=== PATIENT | female | born 1995 | race Caucasian/White ===

== ENCOUNTER 2024-04-02 12:51 | Emergency (ER) | payer MEDICAID, SELFPAY ==
[2024-04-02 13:03] VITALS: BP 142/91; PULSE 91; RESP 18; TEMP 37.3; O2SAT 97; BMI 47.5
--- NOTE | 2024-04-02 13:18 | XR_ITS ---
Examination: PA lateral chest 2 views TECHNIQUE: Portable PA lateral chest 2 views Exam date and time: April 02, 2024 1329 hours INDICATIONS: Shortness of breath beginning 3 days ago. FINDINGS: No significant cardiac enlargement No pneumonia or pulmonary edema Intact osseous structures IMPRESSION: No active disease
--- NOTE | 2024-04-02 16:12 | PD.EDSOB ---
ED SOB =RME/HPI General Chief Complaint: Shortness of Breath/Dyspnea Stated Complaint: SOB X 3 days Time Seen by Provider: 04/02/24 13:04 Arrival date/time: 04/02/24 12:51 28-year-old female presents emergency department complains of painful cough and congestion ongoing for the last 3 days patient also reports fever Limitations: no limitations Related Data Previous Rx's ?Medication ?Instructions ?Recorded azithromycin 500 mg tablet See Rx Instructions PO .COMPLEX #6 04/02/24 tabs benzonatate 100 mg capsule 100 mg PO TID #14 caps 04/02/24 prednisone 10 mg tablet 30 mg (3 x 10 mg) PO BID 3 days 04/02/24 #18 tabs Allergies Allergy/AdvReac Type Severity Reaction Status Date / Time NKA* Allergy Uncoded 04/10/10 10:32 Review of Systems Review of Systems Systems Reviewed: All systems reviewed, normal except as documented Constitutional Constitutional: Reports system reviewed and no additional complaints, except as documented, Reports fever(s) and Reports headache(s) Eyes Eyes: Reports system reviewed and no additional complaints, except as documented and Denies blurry vision ENT Ears, Nose, Mouth, and Throat: Reports system reviewed and no additional complaints, except as documented, Reports headache(s), Reports nasal congestion and Reports nasal discharge Cardiovascular Cardiovascular: Reports system reviewed and no additional complaints, except as documented, Denies chest pain and Denies dyspnea Respiratory Respiratory: Reports system reviewed and no additional complaints, except as documented, Reports chest congestion, Reports cough and Denies dyspnea Gastrointestinal Gastrointestinal: Reports system reviewed and no additional complaints, except as documented and Denies abdominal pain Integumentary/Breasts Skin/Breast: Reports system reviewed and no additional complaints, except as documented and Denies rash Neurologic Neurologic: Reports system reviewed and no additional complaints, except as documented, Reports as per HPI and Reports headache(s) Past Medical History Social History SMOKING STATUS: Never smoker ED Exam General Limitations: Present no limitations General appearance: Present alert and in no apparent distress Head Head exam: Present atraumatic, normocephalic and normal inspection Eye Eye exam: Present normal appearance, PERRL and EOMI; Absent conjunctival injection ENT ENT exam: Present normal exam, normal oropharynx and mucous membranes moist Neck Neck exam: Present normal inspection, full ROM and trachea midline Chest Chest inspection: Present normal inspection and symmetric chest wall rise Respiratory Respiratory exam: Present normal lung sounds bilaterally; Absent respiratory distress Cardiovascular Cardiovascular exam: Present regular rate, normal rhythm and normal heart sounds Abdominal Exam Abdominal exam: Present soft and normal bowel sounds; Absent distention, tenderness, guarding, rebound or rigidity Extremities Exam Extremities exam: Present normal inspection and full ROM Back Exam Back exam: Present normal inspection and full ROM Neurological Exam Neurological exam: Present alert, oriented X3 and CN II-XII intact Psychiatric Psychiatric exam: Present normal affect and normal mood Skin Skin exam: Present warm, dry, intact and normal color Course Quality Measures none Orders Category Date Time Status Bedside COVID-19 Antigen Test NOW Care 04/02/24 13:18 Active Bedside Influenza A&B Antigen Test NOW Care 04/02/24 13:18 Completed XR chest 2V Stat Exams 04/02/24 13:18 Completed Vital Signs Vital signs: Vital Signs Temperature 99.2 F 04/02/24 13:03 Pulse Rate 91 04/02/24 13:03 Respiratory Rate 18 04/02/24 13:03 Blood Pressure 142/91 H 04/02/24 13:03 Pulse Oximetry (%) 97 04/02/24 13:03 Oxygen Delivery Method Room Air 04/02/24 13:03 O2 saturation 97% room air within normal limits Shortness of Breath / Dyspnea MDM Narrative MDM Narrative:: 28-year-old female presents emergency department complains of painful cough and congestion ongoing for the last 3 days patient also reports fever On exam patient well-appearing patient is not appear ill or toxic in no acute distress Patient checked for flu and COVID both which are negative Chest x-ray obtained no acute pneumonic infiltrates noted Symptoms consistent with bronchitis/URI patient will treat with course of antibiotics steroids and cough medicine Patient discharged home in no distress to follow-up with primary care doctor in the next 24 to 48 hours and for any worsening symptoms to return to the ER immediately Patient data External records reviewed:: [facility] previous records Clinical information provided by:: patient Social determinants that could affect healthcare access:: none Patient has the following chronic illnesses:: None How is presenting disease/condition affected by chronic disease/condition?: no chronic disease Evaluation data The following diagnostics were reviewed and interpreted by me:: lab results and radiology exam(s) Lab and/or radiology exams considered but not ordered:: Labs radiology obtained Interpretation Summary: Reviewed by me Medications / Prescriptions Medications or Prescriptions considered but not ordered:: Given Medication administrations:: Given Consultations Consultation(s) initiated? (list below): No Diagnosis Shortness of Breath Differential Diagnosis: acute exacerbation of chronic obstructive airways disease, community acquired pneumonia and asthma with exacerbation Most likely diagnosis given after review of the tests above:: URI Admission Indicated Admission indicated?: not indicated Admission Request Was there a request for admission?: No Disposition Plan Disposition Plan: Discharge Discharge Attestation Discharge Attestation: The patient and all family members were given an opportunity to ask questions and understood the discharge instructions. Discharge instructions specifically effects, indications for sooner follow up or return to the emergency department, and the expected course of current diagnosis. Patient condition: Stable Discharge Plan Plan Patient Disposition: HOME (Self Care) Disposition Comment: Stable Prescriptions/Referrals Prescriptions/Med Rec: New prednisone 10 mg tablet 30 mg PO BID 3 Days Qty: 18 0RF benzonatate 100 mg capsule 100 mg PO TID Qty: 14 0RF azithromycin 500 mg tablet See Rx Instructions .ROUTE .COMPLEX Qty: 6 0RF Rx Instructions: take 500 mg today (day 1), then 250 mg for 4 days (days 2-5) Referrals: Nova Art MD [Primary Care Provider] - 04/03/24 Problem List Clinical Impression: URI (upper respiratory infection) Patient/Caregiver Discharge Instructions Education Materials: Preventing Common Respiratory ... Additional Instructions: Please follow up with your primary care doctor in the next 24-48hrs for any worsening symptoms return here immediately Print Language: Puerto Rican Stand Alone Forms: Zayda Award Info., Work/School Release, Patient Portal Info Letter ERIC/KRUPA Supervising Physician ERIC/KRUPA Supervising Physician: Dr Bass
== END 2024-04-02 17:31 | disposition home or self-care (01) ==
PROVIDERS: Emergency Provider Emergency Medicine; PCP Internal Medicine
DX: J06.9 Acute upper respiratory infection, unspecified (principal)
CPT/HCPCS: 71046; 87400; 87811; 99283

== ENCOUNTER 2024-10-17 06:24 | Emergency (ER) | payer MEDICAID, SELFPAY ==
[2024-10-17 06:26] VITALS: BP 144/96; PULSE 97; RESP 17; TEMP 37.4; O2SAT 96; BMI 38.2
--- NOTE | 2024-10-17 07:25 | EDNOTE_ITS ---
Upper Respiratory Inf. RME/HPI General Chief Complaint: Flu Like Symptoms Stated Complaint: COUGH AND CHEST PAIN Time Seen by Provider: 10/17/24 07:06 Arrival date/time: 10/17/24 06:24 This is a 29-year-old female that comes in with complaints of cough wheezing body pain, congestion that started yesterday. Patient denies any sick contacts. Patient denies any past medical history. Related Data Previous Rx's ?Medication ?Instructions ?Recorded azithromycin 500 mg tablet See Rx Instructions PO .COM PLEX #6 04/02/24 tabs benzonatate 100 mg capsule 100 mg PO TID #14 caps 09/19 albuterol sulfate 90 mcg/actuation 2 puff inhalation Q ID PRN 10/17/24 aerosol inhaler shortness of breath or wheez ing #8.5 grams ibuprofen 800 mg tablet 800 mg PO Q6H PRN pain #14 t abs 10/17/24 promethazine-DM 6.25 mg-15 mg/5 mL 5 ml PO Q6H PRN cou gh #240 mL 10/17/24 oral syrup Allergies Allergy/AdvReac Type Severity Reaction Status Date / Time NKA* Allergy Uncoded 10/17/24 06:30 Review of Systems Review of Systems Systems Reviewed: All systems reviewed, normal except as documented Past Medical History Social History SMOKING STATUS: Never smoker ED Exam Narrative Physical exam: VITAL SIGNS: Reviewed. GENERAL APPEARANCE: Alert and interactive, follows commands, no acute distress, HEAD AND FACE: Non-traumatic. ENT: PERRL, conjuctiva pink and clear, eyelid no trauma, Mucous membrane moist. NECK: Supple, nontender, no nuchal rigidity. CHEST: No tenderness, no crepitus, no paradoxical movement, no retractions. LUNGS: Clear, well ventilated, symmetric, no rales, mild wheezing posteriorly no rhonchi, no stridor, good breath sounds bilaterally. HEART: Regular rate, regular rhythm, no murmur, no gallops. ABDOMEN: Soft, nondistended, no guarding, nontender, no rebound, no masses, NEUROLOGICAL: Gross motor function intact sensory function intact, Appropriate for age. MUSCULOSKELETAL: low back nontender, full range of motion. EXTREMITIES: No redness no swelling no skin breakdown on bilateral foot and leg. Distal neurovascular status intact bilateral foot SKIN: Color pink, dry, no rash, no lacerations, no abrasions, no contusions. Course Quality Measures none Orders Category Date Time Status Bedside COVID-19 Antigen Test NOW Care 10/17/24 07:23 Completed Bedside Influenza A&B Antigen Test NOW Care 10/17/24 07:23 Completed ALBUTEROL RT 3ml [Proventil Rt 3ml] Med 10/17/24 07:25 Discontinued 2.5 mg INH X1 ONE Acetaminophen Tab [Tylenol ES Tab] Med 10/17/24 07:23 Discontinued 1,000 mg PO X1 ONE Dexamethasone Inj [Decadron Inj] Med 10/17/24 07:23 Discontinued 10 mg PO X1 ONE Ibuprofen Tab [Motrin Tab] Med 10/17/24 07:23 Discontinued 800 mg PO X1 ONE Vital Signs Vital signs: Vital Signs Temperature 99.4 F 10/17/24 06:26 Pulse Rate 97 10/17/24 06:26 Respiratory Rate 17 10/17/24 06:26 Blood Pressure 144/96 H 10/17/24 06:26 Pulse Oximetry (%) 96 10/17/24 06:26 Oxygen Delivery Method Room Air 10/17/24 06:26 Upper Respiratory Infection MDM Narrative MDM Narrative:: Patient feels better after breathing treatment. Will send patient home with an inhaler. Will treat patient for URI. Influenza negative. Patient told to follow-up with primary provider in 1 to 2 days. Come back to the emergency room if symptoms change or worsen. Patient data External records reviewed:: [facility] previous records Clinical information provided by:: patient Social determinants that could affect healthcare access:: none Patient has the following chronic illnesses:: None How is presenting disease/condition affected by chronic disease/condition?: no chronic disease Evaluation data The following diagnostics were reviewed and interpreted by me:: lab results Lab and/or radiology exams considered but not ordered:: None Interpretation Summary: See note Medications / Prescriptions Medications or Prescriptions considered but not ordered:: none Medication administrations:: Medication Administration History Discontinued Medications Acetaminophen (Acetaminophen 500 Mg Tablet) 1,000 mg PO X1 ONE Stop: 10/17/24 07:24 Last Admin: 10/17/24 07:53 Dose: 1,000 mg Documented By: ED Albuterol (Albuterol Rt 2.5 Mg/3 Ml Nebu) 2.5 mg INH X1 ONE Stop: 10/17/24 07:26 Last Admin: 10/17/24 07:40 Dose: 2.5 mg Documented By: EV Dexamethasone Sodium Phosphate (Dexamethasone Sod Phos Inj 10 Mg/Ml Vial) 10 mg PO X1 ONE Stop: 10/17/24 07:24 Last Admin: 10/17/24 07:52 Dose: 10 mg Documented By: ED Ibuprofen (Ibuprofen Tab 400 Mg Tablet) 800 mg PO X1 ONE Stop: 10/17/24 07:24 Last Admin: 10/17/24 07:53 Dose: 800 mg Documented By: ED See MAR Consultations Consultation(s) initiated? (list below): No Diagnosis Upper Respiratory Differential Diagnosis: upper respiratory infection, viral infection, bronchitis, influenza, pharyngitis and other (rad) Most likely diagnosis given after review of the tests above:: rad, and uri Admission Indicated Admission indicated?: not indicated Admission Request Was there a request for admission?: No Disposition Plan Disposition Plan: Discharge Discharge Attestation Discharge Attestation: The patient and all family members were given an opportunity to ask questions and understood the discharge instructions. Discharge instructions specifically effects, indications for sooner follow up or return to the emergency department, and the expected course of current diagnosis. Patient condition: Stable Discharge Plan Plan Patient Disposition: HOME (Self Care) Patient condition on transfer: Stable Prescriptions/Referrals Prescriptions/Med Rec: New promethazine-DM 6.25-15 mg/5 mL syrup 5 ml PO Q6H PRN (Reason: cough) Qty: 240 0RF albuterol sulfate 90 mcg/actuation HFA aerosol inhaler 2 puff inhalation QID PRN (Reason: shortness of breath or wheezing) Qty: 8.5 0RF ibuprofen 800 mg tablet 800 mg PO Q6H PRN (Reason: pain) Qty: 14 0RF No Action benzonatate 100 mg capsule 100 mg PO TID Qty: 14 0RF azithromycin 500 mg tablet See Rx Instructions .ROUTE .COMPLEX Qty: 6 0RF Rx Instructions: take 500 mg today (day 1), then 250 mg for 4 days (days 2-5) Referrals: Nova Art MD [Primary Care Provider] - In 1 week Problem List Clinical Impression: URI (upper respiratory infection), RAD (reactive airway disease) Patient/Caregiver Discharge Instructions Discharge Activity: activity as tolerated Education Materials: ED Inhaler Use, ED URI, Viral W/ Wheezing (Adult) Additional Instructions: Follow up with primary provider in 1-2 days. Come back to ED if symptoms change or worsen Print Language: Norwegian Stand Alone Forms: Zayda Award Info., Patient Portal Info Letter PA/ELECTRIC CUTTER OPERATOR Supervising Physician PA/ELECTRIC CUTTER OPERATOR Supervising Physician: rosa
[2024-10-17 07:40] VITALS: PULSE 89
[2024-10-17] MEDS: ALBUTEROL RT 2.5 MG/3 ML NEBU INH (07:40)
[2024-10-17 07:42] VITALS: PULSE 88; RESP 18; O2SAT 100
[2024-10-17] MEDS: DEXAMETHASONE SOD PHOS INJ 10 MG/ML VIAL PO (07:52)
[2024-10-17] MEDS: IBUPROFEN TAB 400 MG TABLET 800 MG PO (07:53)
[2024-10-17] MEDS: ACETAMINOPHEN 500 MG TABLET 1000 MG PO (07:53)
== END 2024-10-17 08:20 | disposition home or self-care (01) ==
PROVIDERS: Emergency Provider Emergency Medicine; PCP Internal Medicine
DX: J06.9 Acute upper respiratory infection, unspecified (principal); J45.909 Unspecified asthma, uncomplicated
CPT/HCPCS: 94640; 99283; J1100; A9270

== ENCOUNTER → 2024-11-26 | Outpatient (CLI) | payer MEDICAID, SELFPAY ==
--- NOTE | 2024-11-26 09:15 | XR_ITS ---
Examination: PA lateral chest 2 views TECHNIQUE: Upright PA lateral chest 2 views Date and time: November 26, 2024 0957 hours INDICATIONS: Coughing beginning one month ago. FINDINGS: Mild prominence left ventricle. No pneumonia or pulmonary edema. Intact osseous structures IMPRESSION: No pneumonia identified
== END | disposition home or self-care (01) ==
LOC: CDIM 09:05
DX: R05.1 Acute cough (principal)
CPT/HCPCS: 71046